=== PATIENT | female | born 1970 | race American Indian/Alaskan Native ===

== ENCOUNTER 2018-03-06 08:18 | Outpatient (CLI) | payer OTHER | END 2018-03-06 08:19 | disposition home or self-care (01) | LOC: RAD 08:18 ==

== ENCOUNTER 2018-03-07 07:41 | Outpatient (CLI) | payer OTHER | END 2018-03-07 07:42 | disposition home or self-care (01) | LOC: RAD 07:41 ==

== ENCOUNTER 2018-03-24 23:56 | Emergency (ER) | payer MEDICAID, OTHER ==
[2018-03-25 00:27] VITALS: BMI 29.2
[2018-03-25 00:32] VITALS: O2SAT 100
[2018-03-25] MEDS ORDERED: Oxycodone/Acetaminophen 5/325 mg Tab PO STA (00:46)
--- NOTE | 2018-03-25 00:51 | ED PDOC ---
Arrival/HPI - General Chief Complaint: Finger,Hand,&Wrist Time Seen by Provider: 03/25/18 00:32 Historian: Patient - History of Present Illness Narrative History of Present Illness (Text): 03/25/18 00:44 Alok Chou is a 47 year old female who presents to the Emergency department complaining of right shoulder pain. Patient states she developed right shoulder pain, worsened with movement, with an associated tingling se nsation to the right arm earlier today. Patient denies any history of recent fall, chest pain, shortness of breath, nausea, vomiting, back pain, neck pain, headache, dizziness, or any other complaints. Symptom Onset: Gradual Symptom Course: Unchanged Activities at Onset: Light Context: Home Past Medical History - Provider Review Nursing Documentation Reviewed: Yes - Infectious Disease Hx of Infectious Diseases: None - Reproductive Menopause: No - Psychiatric Hx Psychophysiologic Disorder: No Hx Substance Use: No - Anesthesia Hx Anesthesia: No Family/Social History - Physician Review Nursing Documentation Reviewed: Yes Family/Social History: Unknown Family HX Smoking Status: Current Some Days Smoker Hx Alcohol Use: No Hx Substance Use: No Allergies/Home Meds Allergies/Adverse Reactions: Allergies No Known Allergies Allergy (Verified 03/25/18 00:32) Home Medications: Home Meds Medication Instructions Recorded Confirmed Multivitamin/Iron/Folic Acid 1 tab PO DAILY 01/08/17 01/08/17 [Centrum Adults Tablet] Review of Systems - Physician Review All systems were reviewed & negative as marked: Yes - Review of Systems Constitutional: Normal. absent: Fevers Eyes: Normal ENT: Normal Respiratory: Normal. absent: SOB, Cough Cardiovascular: Normal. absent: Chest Pain Gastrointestinal: Normal. absent: Abdominal Pain, Diarrhea, Nausea, Vomiting Genitourinary Female: Normal. absent: Dysuria, Frequency, Hematuria, Urine Output Changes Musculoskeletal: Arthralgias (+right shoulder pain). absent: Back Pain, Neck Pain Skin: Normal. absent: Rash Neurological: Normal. absent: Headache, Dizziness Endocrine: Normal Hemo/Lymphatic: Normal Psychiatric: Normal Physical Exam Vital Signs Reviewed: Yes Vital Signs Temp Pulse Resp BP Pulse Ox 03/25/18 00:27 98.6 F 89 20 126/86 100 Temperature: Afebrile Blood Pressure: Normal Pulse: Regular Respiratory Rate: Normal Appearance: Positive for: Well-Appearing, Non-Toxic, Comfortable Pain Distress: None Mental Status: Positive for: Alert and Oriented X 3 - Systems Exam Head: Present: Atraumatic, Normocephalic Pupils: Present: PERRL Extroacular Muscles: Present: EOMI Conjunctiva: Present: Normal Mouth: Present: Moist Mucous Membranes Neck: Present: Normal Range of Motion Respiratory/Chest: Present: Clear to Auscultation, Good Air Exchange. No: Respiratory Distress, Accessory Muscle Use Cardiovascular: Present: Regular Rate and Rhythm, Normal S1, S2. No: Murmurs Abdomen: No: Tenderness, Distention, Peritoneal Signs Back: Present: Normal Inspection Upper Extremity: Present: Normal ROM, NORMAL PULSES, Tenderness (Tenderness with palpation of the right anterior shoulder, tenderness with right shoulder abduction), Neurovascularly Intact, Capillary Refill < 2s. No: Cyanosis, Edema, Swelling, Erythema, Temperature Abnormalties, Deformity Lower Extremity: Present: Normal Inspection. No: Edema Neurological: Present: GCS=15, CN II-XII Intact, Speech Normal Skin: Present: Warm, Dry, Normal Color. No: Rashes Psychiatric: Present: Alert, Oriented x 3, Normal Insight, Normal Concentration Medical Decision Making ED Course and Treatment: 03/25/18 00:45 Impression: 47 year old female complaining of right shoulder pain today. Plan: -- Toradol -- Percocet -- XR Right Shoulder -- Reassess and disposition Prior Visits: Notes and results from previous visits were reviewed. Progress Notes: 03/25/18 02:29 Reviewed radiology, XR Right Shoulder shows calcifications consistent with bursitis. - RAD Interpretation Residential Sales Executive: ED Physician - Scribe Statement The provider has reviewed the documentation as recorded by the Chepe Ann Provider Scribe Attestation: All medical record entries made by the Amandoiblynn were at my direction and personally dictated by me. I have reviewed the chart and agree that the record accurately reflects my personal performance of the history, physical exam, medical decision making, and the department course for this patient. I have also personally directed, reviewed, and agree with the discharge instructions and di sposition. Disposition/Present on Arrival - Present on Arrival Any Indicators Present on Arrival: No History of DVT/PE: No History of Uncontrolled Diabetes: No Urinary Catheter: No History of Decub. Ulcer: No History Surgical Site Infection Following: None - Disposition Have Diagnosis and Disposition been Completed?: Yes Diagnosis: Shoulder bursitis Disposition: HOME/ ROUTINE Disposition Time: 03:25 Patient Plan: Discharge Condition: STABLE Discharge Instructions (ExitCare): Shoulder Bursitis (DC) Additional Instructions: Take meds as prescribed/follow up with the orthopedist this week Prescriptions: Hydrocodone/Ibuprofen [Hydrocodone-Ibuprofen 7.5-200] 1 each PO Q6 PRN #16 tablet PRN Reason: Pain, Moderate (4-7) Referrals: Mehrdad Maurice MD [Primary Care Provider] - Follow up with primary Surinder Roldan III, MD [Medical Doctor] - Follow up with primary Forms: [facility] ([place]ive[place])
[2018-03-25 03:57] VITALS: BP 122/68; PULSE 74; RESP 18; TEMP 98
--- NOTE | 2018-03-25 07:47 | RAD ---
Date of service: 03/25/2018 PROCEDURE: Radiographs of the Right Shoulder HISTORY: pain COMPARISON: No prior. FINDINGS: BONES: No interval acute cardiopulmonary disease appreciated. JOINTS: Normal. Glenohumeral and acromioclavicular joints preserved. No osteoarthritis. SOFT TISSUES: Heterotopic calcification lateral to the greater tuberosity may indicate calcific tendinosis on relatively prominent basis. OTHER FINDINGS: None. IMPRESSION: Relatively prominent calcific tendinosis suggested. Clinically correlate further. MRI may be useful for added characterization. No acute fracture, subluxation or dislocation right shoulder.
== END 2018-03-25 03:53 | disposition home or self-care (01) ==
LOC: ED 23:56
DX: M75.51 Bursitis of right shoulder (principal)
CPT/HCPCS: 73030; 81025; 96372; 99284; J1885

== ENCOUNTER 2018-06-12 22:32 | Emergency (ER) | payer MEDICAID, OTHER ==
[2018-06-12 22:43] VITALS: BMI 28.4
[2018-06-12 22:47] VITALS: TEMP 97.7
--- NOTE | 2018-06-12 23:03 | ED PDOC ---
Arrival/HPI - General Chief Complaint: Chest Pain Time Seen by Provider: 06/12/18 22:36 Historian: Patient - History of Present Illness Narrative History of Present Illness (Text): 06/12/18 23:01 47 year old female, whose past medical history includes hypertension and anemia, presents to the emergency department complaining of midsternal chest pain that began this morning. Patient describes the pain as a pressure-like sensation and states that it feels like something is sitting on her chest, but denies any radiation. Patient reports she took Pepcid and Aspirin at 10:30AM with no relief. She reports that she had an argument with her daughter last night. Patient denies any fever, chills, shortness of breath, nausea, vomiting, diarrhea, urinary symptoms, back pain, neck pain, headache, dizziness, or any other complaints. PMD: Dr. Maurice Time/Duration: Other (this morning) Symptom Onset: Gradual Symptom Course: Unchanged Activities at Onset: Light Context: Home Past Medical History - Provider Review Nursing Documentation Reviewed: Yes - Infectious Disease Hx of Infectious Diseases: None - Psychiatric Hx Psychophysiologic Disorder: No Hx Substance Use: No - Surgical History Hx Gastric Bypass Surgery: Yes (gastric sleeve) - Anesthesia Hx Anesthesia: No Family/Social History - Physician Review Nursing Documentation Reviewed: Yes Family/Social History: No Known Family HX Smoking Status: Current Some Days Smoker Hx Alcohol Use: No Hx Substance Use: No Allergies/Home Meds Allergies/Adverse Reactions: Allergies No Known Allergies Allergy (Verified 06/12/18 22:43) Home Medications: Home Meds Medication Instructions Recorded Confirmed No Known Home Med 06/12/18 06/12/18 Review of Systems - Physician Review All systems were reviewed & negative as marked: Yes - Review of Systems Constitutional: absent: Fevers, Other (chills) Respiratory: absent: SOB Cardiovascular: Chest Pain Gastrointestinal: absent: Diarrhea, Nausea, Vomiting Genitourinary Female: absent: Dysuria, Frequency, Hematuria Musculoskeletal: absent: Back Pain, Neck Pain Neurological: absent: Headache, Dizziness Physical Exam Vital Signs Reviewed: Yes Vital Signs Temp Pulse Resp BP Pulse Ox 06/12/18 22:47 97.7 F 06/12/18 22:44 77 14 116/82 100 Temperature: Afebrile Blood Pressure: Normal Pulse: Regular Respiratory Rate: Normal Appearance: Positive for: Well-Appearing, Non-Toxic, Comfortable, Other (obese ) Pain Distress: None Mental Status: Positive for: Alert and Oriented X 3 - Systems Exam Head: Present: Atraumatic, Normocephalic Pupils: Present: PERRL Extroacular Muscles: Present: EOMI Conjunctiva: Present: Normal Mouth: Present: Moist Mucous Membranes Neck: Present: Normal Range of Motion Respiratory/Chest: Present: Clear to Auscultation, Good Air Exchange. No: Respiratory Distress, Accessory Muscle Use Cardiovascular: Present: Regular Rate and Rhythm, Normal S1, S2. No: Murmurs Abdomen: No: Tenderness, Distention, Peritoneal Signs Back: Present: Normal Inspection Upper Extremity: Present: Normal Inspection. No: Cyanosis, Edema Lower Extremity: Present: Normal Inspection. No: Edema Neurological: Present: GCS=15, Speech Normal Skin: Present: Warm, Dry, Normal Color. No: Rashes Psychiatric: Present: Alert, Oriented x 3, Normal Insight, Normal Concentration Medical Decision Making ED Course and Treatment: 06/12/18 23:02 Impression: 47 year old female presents complaining of midsternal chest pain/pressure that began this morning. Plan: -- EKG -- labs -- Chest X-ray -- Urine Culture -- HCG, Qualit Urine -- Urinalysis w/ micro -- Reassess and disposition Prior Visits: Notes and results from previous visits were reviewed. Progress Notes: EKG shows NSR at [address]/T wave changes[address] Interpreted by me. 06/12/18 23:54 Patient refuses rectal exam. Patient is known to be anemic. CXR Impression: As read by me, No active disease. 06/13/18 00:20 Case discussed with POKER MACHINE ATTENDANT of Dr. Kilpatrick who is aware and agrees with the plan. Accepts patient into Dr. Kilpatrick service. 06/13/18 01:36 noted anemia, unknown baseline. refuses rectal annamarie gi bleed. states h/o of anemia on iron. accpeted by dr kilpatrick crnp. - Lab Interpretations I have reviewed the lab results: Yes - RAD Interpretation Radiology Orders: 06/12/18 22:59 CHEST PORTABLE [RAD] Stat Auto Body Straightener: ED Physician - EKG Interpretation Interpreted by ED Physician: Yes Type: 12 lead EKG - Scribe Statement The provider has reviewed the documentation as recorded by the Scribe Alaa Vinton Provider Chepe Attestation: All medical record entries made by the Chepe were at my direction and personally dictated by me. I have reviewed the chart and agree that the record accurately reflects my personal performance of the history, physical exam, medical decision making, and the department course for this patient. I have also personally directed, reviewed, and agree with the discharge instructions and disposition. Disposition/Present on Arrival - Present on Arrival Any Indicators Present on Arrival: No History of DVT/PE: No History of Uncontrolled Diabetes: No Urinary Catheter: No History of Decub. Ulcer: No History Surgical Site Infection Following: None - Disposition Have Diagnosis and Disposition been Completed?: Yes Diagnosis: Chest pain Disposition: HOSPITALIZED Disposition Time: 01:00 Condition: STABLE
[2018-06-12 23:41] LABS: BASO # 0.04 K/mm3 (0.0-2.0); BASO % 0.5 % (0.0-3.0); EOS # 0.2 (0.0-0.7); EOS % 2.6 % (1.5-5.0); HEMOGLOBIN 8.7 g/dL (12.0-16.0); LYMPH # 1.7 (1.2-3.4); LYMPH % 22.5 % (22.0-35.0); MEAN CELL VOLUME 72.4 fl (80.0-105.0); MEAN CORPUSCULAR HEMOGLOBIN 20.2 pg (25.0-35.0); MEAN CORPUSCULAR HGB CONC 27.9 g/dl (31.0-37.0); MEAN PLATELET VOLUME 8.5 fl (7.0-11.0); MONO # 0.5 (0.1-0.6); MONO % 6.4 % (1.0-6.0); PH,URINE 6.5 (4.7-8.0); RBC 4.31 10^6/uL (3.5-6.1); RED CELL DISTRIBUTION WIDTH 17.2 % (11.5-14.5); URINE BILIRUBIN NEGATIVE (NEGATIVE); URINE BLOOD LARGE (NEGATIVE); URINE GLUCOSE (UA) NEGATIVE (NEGATIVE); URINE LEUKOCYTE ESTERASE TRACE Leu/uL (NEGATIVE); URINE PROTEIN NEGATIVE mg/dL (<30 mg/dL); URINE UROBILINOGEN 0.2 E.U./dL (<1 E.U./dL); WHITE BLOOD COUNT 7.7 10^3/uL (4.5-11.0)
[2018-06-12 23:51] LABS: URINE APPEARANCE CLEAR (CLEAR); URINE COLOR YELLOW (YELLOW)
[2018-06-12 23:56] LABS: INR 1.06; PARTIAL THROMBOPLASTIN TIME 27.7 Seconds (26.9-38.3); PROTHROMBIN TIME 11.8 SECONDS (9.4-12.5)
[2018-06-12 23:57] LABS: ALBUMIN 3.9 g/dL (3.0-4.8); ALT/SGPT 8 U/L (7-56); AST/SGOT 29 U/L (14-36); BLOOD UREA NITROGEN 15 mg/dL (7-21); CALCIUM 9.3 mg/dL (8.4-10.5); GFR NON-AFRICAN AMERICAN > 60
[2018-06-13 00:02] LABS: HCG,QUALITATIVE URINE NEGATIVE (NEGATIVE)
[2018-06-13 00:03] LABS: TROPONIN I < 0.01 ng/mL
[2018-06-13 00:18] LABS: URINE BACTERIA TRACE /hpf
[2018-06-13 05:02] VITALS: BP 119/86; PULSE 78; RESP 14; O2SAT 98
--- NOTE | 2018-06-13 09:30 | CARD ---
APPROVED REPORT Date of service: 06/12/2018 EKG Measurement Heart [id number] <Conclusion> Normal sinus rhythm Normal ECG
--- NOTE | 2018-06-13 12:20 | RAD ---
Date of service: 06/12/2018 HISTORY: cp COMPARISON: No prior. TECHNIQUE: 1 view obtained. FINDINGS: LUNGS: No active pulmonary disease. PLEURA: No significant pleural effusion identified, no pneumothorax apparent. CARDIOVASCULAR: No aortic atherosclerotic calcification present. Normal cardiac size. No pulmonary vascular congestion. OSSEOUS STRUCTURES: No significant abnormalities. VISUALIZED UPPER ABDOMEN: Normal. OTHER FINDINGS: None. IMPRESSION: No active disease.
== END 2018-06-13 05:05 | disposition left against medical advice (07) ==
LOC: ED 22:32 → ERH 06-13 00:05 → UNDOADMOB 06-13 00:05 → ED 06-13 05:05
DX: R07.9 Chest pain, unspecified (principal); I10 Essential (primary) hypertension; D64.9 Anemia, unspecified; F17.210 Nicotine dependence, cigarettes, uncomplicated